=== PATIENT | male | born 1990 | race Two or more races ===

== ENCOUNTER 2016-11-04 14:52 | Emergency (ER) | payer OTHER ==
[~2016-11-04] VITALS: Ht 180.3 cm; Wt 61.2 kg
[2016-11-04 14:52] VITALS: BP 112/76
[2016-11-04] MEDS ORDERED: ACETAMINOPHEN ES 500 MG TABLET PO ONE (16:00)
== END 2016-11-04 15:50 | disposition home or self-care (01) ==
LOC: ER 14:58
DX: S06.0X9A Concussion with loss of consciousness of unspecified duration, initial encounter (principal); W22.01XA Walked into wall, initial encounter; Y93.01 Activity, walking, marching and hiking; Y92.89 Other specified places as the place of occurrence of the external cause; Y99.0 Civilian activity done for income or pay
CPT/HCPCS: 99281; A4606; Z7610; Z7502